=== PATIENT | female | born 1990 | race American Indian/Alaskan Native ===

== ENCOUNTER 2017-05-16 04:20 | Emergency (ER) | payer MEDICAID ==
[2017-05-16 04:41] VITALS: BP 131/76; PULSE 100; RESP 20; TEMP 98.2; O2SAT 97
--- NOTE | 2017-05-16 04:57 | C.PDOC ---
History Of Present Illness 26 y/o female presents to ED requesting a place to sleep. Patient was recently discharged from [facility] – [place] and medically cleared by crisis unit. No physical complaints at this time. Time Seen by Provider: 05/16/17 04:29 Chief Complaint (Nursing): Medical Clearance History Per: Patient History/Exam Limitations: no limitations Onset/Duration Of Symptoms: Days Current Symptoms Are (Timing): Still Present Reports Recently: Seen In ED ([facility] – [place]) Past Medical History Reviewed: Historical Data, Nursing Documentation, Vital Signs Vital Signs: Last Vital Signs Temp 98.2 F 05/16/17 04:34 Pulse 100 H 05/16/17 04:34 Resp 20 05/16/17 04:34 BP 131/76 05/16/17 04:34 Pulse Ox 97 05/16/17 04:57 - Medical History PMH: Schizophrenia Surgical History: No Surg Hx Family History: States: No Known Family Hx - Social History Hx Alcohol Use: No Hx Substance Use: No - Immunization History Hx Tetanus Toxoid Vaccination: No Hx Influenza Vaccination: No Hx Pneumococcal Vaccination: No Review Of Systems Constitutional: Negative for: Fever, Chills Cardiovascular: Negative for: Chest Pain Respiratory: Negative for: Shortness of Breath Gastrointestinal: Negative for: Nausea, Vomiting Skin: Negative for: Rash Psych: Negative for: Anxiety, Suicidal ideation Physical Exam - Physical Exam Appears: Non-toxic, No Acute Distress Skin: Warm, Dry, No Rash Head: Atraumatic, Normacephalic Oral Mucosa: Moist Cardiovascular: Rhythm Regular Respiratory: Normal Breath Sounds, No Rales, No Rhonchi, No Wheezing Gastrointestinal/Abdominal: Soft, No Tenderness, No Guarding, No Rebound Back: No CVA Tenderness, No Paraspinal Tenderness Extremity: Normal ROM, Capillary Refill (<2 seconds) Neurological/Psych: Oriented x3, Normal Speech ED Course And Treatment O2 Sat by Pulse Oximetry: 97 (RA) Pulse Ox Interpretation: Normal Medical Decision Making Medical Decision Making: On re-exasm, the patient is resting comfortably and has no complaints at this time. Disposition - Disposition Referrals: [facility] at [facility] [Outside] Disposition: HOME/ ROUTINE Disposition Time: 05:53 Condition: GOOD Additional Instructions: Follow up with the medical doctor within 1-2 days. Return if worsened. Instructions: Normal Exam (ED) Forms: [employer]opay ([place]uxem[place]ish) - Clinical Impression Clinical Impression: Malingering, Homelessness - PA / HOSPITAL ADMINISTRATOR / Resident Statement MD/DO has reviewed & agrees with the documentation as recorded. - Scribe Statement The provider has reviewed the documentation as recorded by the Hans Moseley All medical record entries made by the Hans were at my direction and personally dictated by me. I have reviewed the chart and agree that the record accurately reflects my personal performance of the history, physical exam, medical decision making, and the department course for this patient. I have also personally directed, reviewed, and agree with the discharge instructions and disposition.
[2017-05-16] MEDS ORDERED: Ammonia 2% Inhalant ONE (06:07)
== END 2017-05-16 06:10 | disposition home or self-care (01) ==
LOC: C.ER 04:20
DX: Z76.5 Malingerer [conscious simulation] (principal); Z59.0 Homelessness